=== PATIENT | female | born 1990 | race Asian ===

== ENCOUNTER 2017-05-13 14:07 | Emergency (ER) | payer BC ==
[~2017-05-13] VITALS: Ht 149.9 cm; Wt 68.0 kg
--- NOTE | 2017-05-13 14:27 | Emergency Room Report ---
History of Present Illness General Chief Complaint: Upper Respiratory Illness Source: Patient Present Illness HPI Patient's 27-year-old female brought in by self after increased difficulty with a cough. The patient given breathing treatment at her doctor's office approximately one hour prior to arrival. The patient denied any shortness of breath. She reported having irritation to her throat. She had recently had lab tests drawn was noted to have some elevation of her creatinine at that time. She denies any fever she was noted to be having nonproductive cough Allergies: Coded Allergies: No Known Allergies (Unverified , 05/13/17) Patient History Past Medical History: see triage record Last Menstrual Period: 3 weeks ago Now: No Reviewed Nursing Documentation: PMH: Agreed, PSxH: Agreed Nursing Documentation-PMH Past Medical History: No History, Except For Hx Hypertension: Yes Review of Systems All Other Systems: negative except mentioned in HPI Physical Exam Vital Signs Date Time Temp Pulse Resp B/P (MAP) Pulse Ox O2 Delivery O2 Flow Rate FiO2 05/13/17 14:09 99.5 155 20 140/95 97 Room Air Sp02 EP Interpretation: reviewed, normal General Appearance: normal inspection, alert, GCS 15, mild distress Head: atraumatic ENT: normal ENT inspection, hearing grossly normal, normal voice Neck: normal inspection, full range of motion, supple, no bony tend Respiratory: normal inspection, lungs clear, normal breath sounds, no respiratory distress, no retraction, no wheezing Cardiovascular #1: no edema, tachycardia Gastrointestinal: normal inspection, normal bowel sounds, non tender, soft, no guarding, no hernia Genitourinary: no CVA tenderness Musculoskeletal: normal inspection, back normal, normal range of motion Neurologic: normal inspection, alert, oriented x3, responsive, 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 Differential diagnosis included but was not limited to bronchitis, pneumonia, pulmonary embolism, pericarditis, asthma, foreign body. Because of complexity of patient's case laboratory testing and imaging studies were ordered.A CT of the chest or diarrhea the showed right upper lobe nodular infiltrate. The patient started on IV fluids with improvement in her tachycardia. Bedside ultrasound showed no evidence of pericardial effusionPatient was given prescription for oral antibiotics. She is advised to followup with her primary care physician for further examination. Laboratory testing was notable for evident elevation of d-dimer unremarkable.The patient is advised to follow up with primary care doctor in 1-2 days. Patient is advised to return if any worsening condition or if any changes in status that are concerning. Labs Test 05/13/17 14:35 05/13/17 14:50 White Blood Count 7.7 K/UL (4.8-10.8) Red Blood Count 4.33 M/UL (4.20-5.40) Hemoglobin 12.2 G/DL (12.0-16.0) Hematocrit 37.2 % (37.0-47.0) Mean Corpuscular Volume 86 FL (80-99) Mean Corpuscular Hemoglobin 28.2 PG (27.0-31.0) Mean Corpuscular Hemoglobin Concent 32.8 G/DL (32.0-36.0) Red Cell Distribution Width 12.0 % (11.6-14.8) Platelet Count 251 K/UL (150-450) Mean Platelet Volume 6.2 FL (6.5-10.1) Neutrophils (%) (Auto) 68.0 % (45.0-75.0) Lymphocytes (%) (Auto) 20.7 % (20.0-45.0) Monocytes (%) (Auto) 9.6 % (1.0-10.0) Eosinophils (%) (Auto) 1.2 % (0.0-3.0) Basophils (%) (Auto) 0.5 % (0.0-2.0) D-Dimer 1152 ng/mL (<500) Sodium Level 140 mEQ/L (135-145) Potassium Level 3.7 mEQ/L (3.4-4.9) Chloride Level 101 mEQ/L (98-107) Carbon Dioxide Level 22 mEQ/L (20-30) Anion Gap 17 (5-15) Blood Urea Nitrogen 21 mg/dL (7-23) Creatinine 1.6 mg/dL (0.5-0.9) Estimat Glomerular Filtration Rate 39.3 mL/min (>60) Glucose Level 105 mg/dL (74-106) Calcium Level 9.0 mg/dL (8.6-10.2) Total Bilirubin < 0.2 mg/dL (0.0-1.2) Aspartate Amino Transf (AST/SGOT) 15 U/L (5-40) Alanine Aminotransferase (ALT/SGPT) 10 U/L (3-33) Alkaline Phosphatase 53 U/L (35-104) Troponin I < 0.30 ng/mL (<=0.30) Total Protein 7.1 g/dL (6.6-8.7) Albumin 3.6 g/dL (3.5-5.2) Globulin 3.5 g/dL Albumin/Globulin Ratio 1.0 (1.0-2.7) Thyroid Stimulating Hormone (TSH) 2.150 uIU/mL (0.300-4.500) Urine Color Pale yellow Urine Appearance Slightly cloudy Urine pH 6 (4.5-8.0) Urine Specific [place] 1.010 (1.005-1.035) Urine Protein 4+ (NEGATIVE) Urine Glucose (UA) Negative (NEGATIVE) Urine Ketones Negative (NEGATIVE) Urine Occult Blood 5+ (NEGATIVE) Urine Nitrite Negative (NEGATIVE) Urine Bilirubin Negative (NEGATIVE) Urine Urobilinogen Normal MG/DL (0.0-1.0) Urine Leukocyte Esterase Negative (NEGATIVE) Urine RBC Tntc /HPF (0 - 2) Urine WBC 2-4 /HPF (0 - 2) Urine Squamous Epithelial Cells Many /LPF (NONE/OCC) Urine Bacteria Moderate /HPF (NONE) Urine HCG, Qualitative Negative EKG Diagnostic Results Rate: tachycardiac Rhythm: NSR - 143 ST Segments: no acute changes Rhythm Strip Diag. Results EP Interpretation: yes Rhythm: NSR, no PVC's, no ectopy Last Vital Signs Date Time Temp Pulse Resp B/P (MAP) Pulse Ox O2 Delivery O2 Flow Rate FiO2 05/13/17 14:09 99.5 155 20 140/95 97 Room Air Status: unchanged Disposition: ADMITTED INPATIENT Condition: Serious Scripts Promethazine/Dextromethorphan (Promethazine-Dm Syrup) 473 Ml Syrup 1 TSP ORAL Q4H Y for For Cough, #118 ML 0 Refills Prov: Dilshad Altman 05/13/17 Azithromycin* (ZITHROMAX*) 250 Mg Tablet 250 MG ORAL DAILY, #6 TAB 0 Refills Take two tables once daily for 1 day, then one tablet once daily for 4 days. Prov: Dilshad Altman 05/13/17 Dilshad Altman May 13, 2017 14:27
[2017-05-13] MEDS ORDERED: Promethazine/Codeine 5ml UD ORAL ONE (14:30)
[2017-05-13 14:42] LABS: BASOPHILS % (AUTO) 0.5 % (0.0-2.0); EOSINOPHILS % (AUTO) 1.2 % (0.0-3.0); LYMPHOCYTES % (AUTO) 20.7 % (20.0-45.0); MEAN CORPUSCULAR HEMOGLOBIN 28.2 PG (27.0-31.0); MEAN CORPUSCULAR HGB CONC 32.8 G/DL (32.0-36.0); MEAN CORPUSCULAR VOLUME 86 FL (80-99); MEAN PLATELET VOLUME 6.2 FL (6.5-10.1); MONOCYTES % (AUTO) 9.6 % (1.0-10.0); PLATELET COUNT 251 K/UL (150-450); RED BLOOD COUNT 4.33 M/UL (4.20-5.40); WHITE BLOOD COUNT 7.7 K/UL (4.8-10.8)
[2017-05-13 14:54] VITALS: BP 140/95
[2017-05-13 14:59] LABS: ALANINE AMINOTRANSFERASE 10 U/L (3-33); ANION GAP 17 (5-15); ASPARTATE AMINO TRANSFERASE 15 U/L (5-40); CARBON DIOXIDE 22 mEQ/L (20-30); CHLORIDE 101 mEQ/L (98-107); CREATININE 1.6 mg/dL (0.5-0.9); GLOMERULAR FILTRATION RATE 39.3 mL/min (>60); POTASSIUM 3.7 mEQ/L (3.4-4.9); SODIUM 140 mEQ/L (135-145); TOTAL PROTEIN 7.1 g/dL (6.6-8.7)
[2017-05-13 15:02] LABS: TROPONIN I < 0.30 ng/mL (<=0.30)
[2017-05-13 15:17] LABS: APPEARANCE,URINE SLIGHTLY CLOUDY; KETONES,URINE NEGATIVE (NEGATIVE); LEUKOCYTE ESTERASE ,URINE NEGATIVE (NEGATIVE); NITRITE,URINE NEGATIVE (NEGATIVE); PH,URINE 6 (4.5-8.0); PROTEIN,URINE 4+ (NEGATIVE); UROBILINOGEN,URINE NORMAL MG/DL (0.0-1.0)
[2017-05-13 15:26] LABS: RBC,URINE TNTC /HPF (0 - 2); SQUAMOUS EPITHELIAL CELL,UR MANY /LPF (NONE/OCC)
[2017-05-13 15:27] LABS: HEMOLYSIS 4
[2017-05-13 15:27] LABS: BACTERIA,URINE MODERATE /HPF
[2017-05-13 15:35] VITALS: BP 119/105
--- NOTE | 2017-05-13 15:42 | Diagnostic Imaging Report ---
Indication: SOB Technique: One view of the chest Comparison: none Findings: Lungs and pleural spaces are clear. Heart size is normal. Impression: No acute process
[2017-05-13] MEDS ORDERED: PHENERGAN6.25 MG/5 ORAL (17:18)
[2017-05-13] MEDS ORDERED: ZITHROMAX250 MG ORAL (17:18)
[2017-05-13 17:30] VITALS: BP 140/91
[2017-05-13 17:32] VITALS: BP 140/91
--- NOTE | 2017-05-14 09:50 | Diagnostic Imaging Report ---
ndication: SOB Technique: IV administration nonionic contrast. Spiral acquisitions obtained from the lung bases to the lung apices. Multiplanar and 3-D reconstructions were generated. Total dose length product 895 mGycm. CTDIvol(s) 12, T12, 26 mGy. Dose reduction achieved using automated exposure control Comparison: Reference made to chest radiograph earlier the same day Findings: There is good quality opacification of the pulmonary arteries. No intraluminal filling defects or other findings to suggest acute pulmonary embolus demonstrated. No evidence of thoracic aneurysm or dissection. Classic branching anatomy of the great neck vessels. Normal heart size. No evidence of right ventricular dilatation. Normal caliber pulmonary arteries. Focal patchy nodular infiltrates are seen in the right upper lobe. Focal opacity in the inferior lingula probably represents a focus of atelectasis. The remainder the lungs are clear. The pleural spaces are clear. Normal heart size. No pericardial effusion. No mediastinal or hilar mass or adenopathy. No axillary or chest wall mass or adenopathy. The bones are unremarkable. The upper, anatomy demonstrates diffuse hepatic low attenuation. Otherwise unremarkable Impression: Negative for acute pulmonary embolus or other acute thoracic vascular pathology Nonspecific small patchy nodular infiltrates in the right upper lobe, may represent areas of focal pneumonia Probable small focus of atelectasis in the left inferior lingula Diffuse hepatic low attenuation, consistent with fatty change This agrees with the preliminary interpretation provided overnight by Dr. Mojica The CT scanner at [facility] is accredited by the [employer] and the scans are performed using protocols designed to limit radiation exposure to as low as reasonably achievable to attain images of sufficient resolution adequate for diagnostic evaluation.
== END 2017-05-13 17:43 | disposition home or self-care (01) ==
LOC: EMR 14:43
DX: J18.9 Pneumonia, unspecified organism (principal); I10 Essential (primary) hypertension
CPT/HCPCS: 36415; 71010; 71275; 80053; 81003; 81025; 84443; 84484; 85025; 85379; 87086; 93005; 99284; Q9967